=== PATIENT | male | born 1955 | race American Indian/Alaskan Native ===

== ENCOUNTER 2018-11-25 04:55 | Inpatient (IN) ==
[2018-11-19 17:02] LABS: Blood Urea Nitrogen 22 mg/dl (8-23)
[2018-11-19 17:09] LABS: Appearance,Urine CLEAR; Bilirubin,Urine NEG (NEG); Color,Urine YELLOW; Glucose,Urine (UA) 150 mg/dL (NEG); Leukocyte Esterase,Urine NEG /uL (NEG); Protein,Urine NEG (NEG); Specific Gravity,Urine 1.013 (1.000-1.035); Urine Blood NEG mg/dL (<0.03); Urobilinogen,Urine NEG (NEG)
[2018-11-19 17:10] LABS: Basophils # (Auto) 0.1 K/mcL (0.0-0.3); Basophils % (Auto) 0.7 % (0.0-2.0); Eosinophils # (Auto) 0.2 K/mcL (0.0-0.7); Eosinophils % (Auto) 2.6 % (0.0-7.0); Granulocytes % (Auto) 50.9 % (38.0-78.0); Lymphocytes # (Auto) 3.1 K/mcL (1.5-4.8); Lymphocytes % (Auto) 36.5 % (15.5-49.0); Mean Cell Volume 89.4 fL (80.0-100.0); Mean Corpuscular HGB Conc 32.8 g/dL (31.0-36.0); Monocytes # (Auto) 0.8 K/mcL (0.1-0.9); Monocytes % (Auto) 9.3 % (1.0-12.0); Platelet Count 251 K/mcL (140-440); RBC 4.01 M/mcL (4.50-5.90); Red Cell Distribution Width 13.6 % (11.5-14.5)
[2018-11-25] MEDS ORDERED: CELECOXIB 200 MG CAPSULE PO SCH (06:00)
[2018-11-25] MEDS ORDERED: ACETAMINOPHEN 500 MG TABLET PO SCH (06:00)
[2018-11-25] MEDS ORDERED: 0.9 % SODIUM CHLORIDE 9 ML, KETOROLAC 30 MG, ROPIVACAINE HCL/PF 49.5 ML, EPINEPHrine 0.... IJ SCH (06:00)
[2018-11-25] MEDS ORDERED: PREGABALIN 75 MG CAPSULE PO SCH (06:00)
[2018-11-25] MEDS ORDERED: ceFAZolin 2 GM in DEXTROSE 5% IN WATER 50 ML IV SCH (06:00)
[2018-11-25] MEDS ORDERED: oxyCODONE 10 MG TAB.ER.12H PO SCH (06:00)
[2018-11-25] MEDS ORDERED: VASOPRESSIN 20 UNIT/ML VIAL IV PRN (07:28)
[2018-11-25] MEDS ORDERED: ROPIVACAINE HCL/PF 20 ML VIAL IJ ONE (07:45)
[2018-11-25] MEDS ORDERED: LIDOCAINE HCL/PF 100 MG/5 ML SYRINGE IV ONE (07:45)
[2018-11-25] MEDS ORDERED: TRANEXAMIC ACID 1,000 MG/10 ML VIAL IV ONE (07:45)
[2018-11-25] MEDS ORDERED: PROPOFOL 200 MG/20 ML VIAL IV ONE (07:45)
[2018-11-25] MEDS ORDERED: VASOPRESSIN 20 UNIT/ML VIAL IV ONE (07:45)
[2018-11-25] MEDS ORDERED: ONDANSETRON 4 MG/2 ML VIAL IV ONE (07:45)
[2018-11-25] MEDS ORDERED: PHENYLEPHRINE 10 MG/ML VIAL IV ONE (07:45)
[2018-11-25] MEDS ORDERED: DEXAMETHASONE 4 MG/ML VIAL IV ONE (07:45)
[2018-11-25] MEDS ORDERED: ePHEDrine 50 MG/ML AMPUL IV ONE (07:45)
[2018-11-25] MEDS ORDERED: MIDAZOLAM 5 MG/5 ML VIAL IV ONE (07:45)
[2018-11-25] MEDS ORDERED: GENTAMICIN SULFATE 800 MG/20 ML VIAL IR ONE (08:04)
[2018-11-25] MEDS ORDERED: FLEETS ADULT ENEMA PR PRN (09:11)
[2018-11-25] MEDS ORDERED: POLYETHYLENE GLYCOL 3350 17 GM PACKET PO PRN (09:11)
[2018-11-25] MEDS ORDERED: ONDANSETRON 4 MG/2 ML VIAL IV PRN ×2 (09:11→09:37)
[2018-11-25] MEDS ORDERED: TRANEXAMIC ACID 1,000 MG/10 ML VIAL IV SCH (09:11)
[2018-11-25] MEDS ORDERED: MAGNESIUM HYDROXIDE 30 ML ORAL.SUSP PO PRN (09:11)
[2018-11-25] MEDS ORDERED: ACETAMINOPHEN 325 MG TABLET PO PRN (09:11)
[2018-11-25] MEDS ORDERED: BISACODYL 10 MG SUPP.RECT PR PRN (09:11)
[2018-11-25] MEDS ORDERED: BENZOCAINE/MENTHOL 1 LOZENGE PO PRN (09:11)
--- NOTE | 2018-11-25 09:11 | Brief Operative Note ---
Date of procedure: 11/25/18 Pre-op diagnosis: Left knee djd severe Post-op diagnosis: same Procedure: Lefty total knee with dudley robot Grafts/Implants: Yes Anesthesia: AYAD Surgeon: Edu Jalloh Enforcement Officer: Marlo Cisse Estimated blood loss (cc): 20 Tourniquet Time (Minutes): 50 Specimens Removed/Pathology: none sent Condition: stable Disposition: PACU
[2018-11-25] MEDS ORDERED: [UNRECOGNIZED DRUG - OTHER] TD SCH (09:15)
[2018-11-25] MEDS ORDERED: INSULIN ASPART SUB-Q SCH (09:15)
[2018-11-25] MEDS ORDERED: MEPERIDINE 25 MG/ML SYRINGE IV PRN (09:37)
[2018-11-25] MEDS ORDERED: IPRATROPIUM/ALBUTEROL 3 ML AMPUL.NEB NEB PRN (09:37)
[2018-11-25] MEDS ORDERED: METHOCARBAMOL 1,000 MG/10 ML VIAL IV PRN (09:37)
--- NOTE | 2018-11-25 09:38 | Operative Note ---
DATE OF OPERATION: 11/25/2018 PREOPERATIVE DIAGNOSIS: Left knee degenerative arthritis. POSTOPERATIVE DIAGNOSIS: Left knee degenerative arthritis. PROCEDURE: Left total knee arthroplasty using Devin robot. SURGEON: Edu Jalloh MD INDUSTRIAL ENGINEERING PROFESSOR: Marlo Cisse PA-C. The reason for assistance was because of the difficulty of exposure and using the robot, requiring a second development assistant. BLOOD LOSS: 20 mL TOURNIQUET TIME: 50 minutes. IMPLANTS: Size 6 femur and size 6 tibial baseplate. COMPLICATIONS: None. DESCRIPTION OF PROCEDURE: The patient was brought to the operating room and put to sleep with general LMA anesthesia. The left knee was sterilely prepped and draped in the usual sterile field and been confirmed as the operative site. Once done, we then made a midline incision, a mid vastus approach performed. We placed pins above and below the knee, registered center of hip rotation. We made the bony cuts using the robot after we had pre-navigated the implants to align for his deformity which was 8 degrees of varus, 8 degrees of flexion contracture. Once done, we then did the bony cuts, placed the implants which were drilled into place. We removed the meniscus and bony spurs. Next, 9 and 10 mm polys were used. The 10 was the most appropriate for range of motion and tightness. We then prepared the patella measuring 24 mm, cut this to 14 mm in total thickness and placed a 36 mm patellar button. Once in place, the implants were cemented into place and we kept the knee at 45 degrees. We closed the capsule with #1 Stratafix x2 stitches, closed the skin with 2-0 Vicryl and adhesive closure. Tourniquet pressure was 250 pounds of pressure for 50 mmHg. There was no complication. Sterile bandage was applied. RBH:chavo Job ID: [id number] Doc ID: [id number] Edu Jalloh MD
[2018-11-25] MEDS ORDERED: LACTATED RINGERS 1,000 ML IV SCH (09:45)
--- NOTE | 2018-11-25 10:18 | XRay Report ---
HISTORY: Postop left knee arthroplasty FINDINGS: There is a well-positioned left total knee prosthesis. There is no fracture in the femur, patella or tibia. On the lateral view there is a thin obliquely oriented radiolucent line seen along the posterior border of the head of the fibula. This is not seen on the PA view and it was not seen preoperatively on 05/20/18. Although this could be a fracture of the fibula, I suspect it is an artifact created by overlying soft tissue gas. IMPRESSION: Nondisplaced fracture versus artifact created by overlying gas in the head of the fibula. Follow-up is recommended. Interpreted and Authenticated by: Lito Beatty 11/25/18
[2018-11-25] MEDS: 0.45 % SODIUM CHLORIDE 1,000 ML IV SCH ×2 (10:40→20:57)
[2018-11-25] MEDS: oxyCODONE/APAP 5/325MG TABLET PO PRN ×4 (10:41→23:47)
[2018-11-25] MEDS: KETOROLAC 15 MG/ML VIAL IV SCH ×3 (11:42→23:37)
[2018-11-25] MEDS ORDERED: DEXTROSE 50% 50 ML VIAL IV PRN (13:38)
[2018-11-25] MEDS: 0.9 % SODIUM CHLORIDE 10 ML SYRINGE IV SCH ×2 (14:06→20:57)
[2018-11-25] MEDS: HYDROmorphone 2 MG/ML VIAL IV PRN (14:19)
[2018-11-25] MEDS: ceFAZolin 1 GM VIAL IV SCH ×2 (15:30→23:38)
[2018-11-25] MEDS: INSULIN LISPRO 1 UNIT/0.01 ML UNIT SQ SCH ×2 (17:17→20:58)
[2018-11-25] MEDS: INSULIN GLARGINE, HUMAN 1 UNIT/0.01 ML SQ SCH (20:57)
[2018-11-25] MEDS: ASPIRIN 325 MG ENTERIC COATED TABLET PO SCH (20:59)
[2018-11-25] MEDS: DOCUSATE SODIUM 100 MG CAPSULE PO SCH (20:59)
[2018-11-25] MEDS ORDERED: SIMVASTATIN 40 MG TABLET PO SCH (21:00)
[2018-11-25] MEDS ORDERED: SENNOSIDES 1 TABLET PO SCH (21:00)
[2018-11-25] MEDS ORDERED: DOCUSATE SODIUM 100 MG CAPSULE PO SCH (21:00)
[2018-11-25] MEDS ORDERED: TAMSULOSIN 0.4 MG CAPSULE PO SCH (21:00)
[2018-11-25] MEDS ORDERED: TEMAZEPAM 15 MG CAPSULE PO PRN (21:00)
[2018-11-26] MEDS: oxyCODONE/APAP 5/325MG TABLET PO PRN ×2 (04:04→08:17)
[2018-11-26] MEDS: 0.45 % SODIUM CHLORIDE 1,000 ML IV SCH (05:32)
[2018-11-26] MEDS: KETOROLAC 15 MG/ML VIAL IV SCH ×2 (05:49→11:09)
[2018-11-26] MEDS: 0.9 % SODIUM CHLORIDE 10 ML SYRINGE IV SCH (05:50)
[2018-11-26] MEDS: INSULIN LISPRO 1 UNIT/0.01 ML UNIT SQ SCH (06:59)
--- NOTE | 2018-11-26 07:25 | Orthopedic Progress Note ---
Subjective Patient information: Note initiated : 11/26/18 at 7:24 am Service Date, if different from initiated Date: [] Patient: Manfred Rose 63 y/o M admitted on 11/25/18 for Left Robotic Total Knee Arthroplasty. Chief Complaint: [Pt is stable this morning on post operative day 1 without any significant concerns or complaints. Patients vital signs have remained stable. Patients dressing is dry and is grossly intact from a neurovascular and motor standpoint. Patients 10 point ROS is otherwise negative. ] Objective Vital signs: Vital Signs Temp Pulse Resp BP BP Pulse Ox 11/26/18 03:44 98.5 F 91 H 16 135/68 95 11/25/18 23:36 98.1 F 93 H 12 130/67 95 11/25/18 19:21 98.3 F 87 12 117/58 93 11/25/18 18:16 92 11/25/18 16:23 97.8 F 84 18 125/66 92 11/25/18 14:12 95 11/25/18 12:16 76 130/62 95 11/25/18 12:01 75 126/65 95 11/25/18 11:46 70 133/88 92 11/25/18 11:31 69 129/63 92 11/25/18 11:17 73 123/56 95 11/25/18 11:01 71 125/57 94 11/25/18 10:46 73 120/56 94 11/25/18 10:33 72 109/54 96 11/25/18 10:18 74 102/56 96 11/25/18 10:10 97.1 F 72 16 103/46 98 11/25/18 09:55 97.3 F 70 14 102/41 97 11/25/18 09:40 97.0 F 65 16 113/46 95 11/25/18 09:35 64 15 110/42 93 11/25/18 09:30 63 13 106/49 94 11/25/18 09:25 97.0 F 60 18 107/47 96 Intake and Output 11/25/18 11/26/18 11/26/18 21:59 05:59 13:59 Intake Total 1200 Output Total 1150 1100 Balance 50 -1100 Intake: Oral 1200 Output: Void Amount 1150 1100 Other: Meal Lunch Percent of Meal Consumed 100% Feeding Ability Independent Urine Appearance Clear Clear Urine Color Straw Pale Urine Odor Normal Normal Weight 218 lb Intake & Output: Intake & Output 11/25/18 11/26/18 11/26/18 21:59 05:59 13:59 Intake Total 1200 Output Total 1150 1100 Balance 50 -1100 Weight 218 lb Intake: Oral 1200 Output: Void Amount 1150 1100 Other: Meal Lunch Percent of Meal Consumed 100% Feeding Ability Independent Urine Appearance Clear Clear Urine Color Straw Pale Urine Odor Normal Normal Incision: Yes healing Incision clean and dry: Yes Dressing: Yes clean Weight bearing status: full Neurological exam IM: Yes motor sensory intact, Yes neurovascular intact Extremities exam IM: Yes Foot pink and warm, Yes neurovascular intact - Labs CBC & BMP: 11/26/18 04:14 11/19/18 14:49 Labs: Orthopedic Labs 11/19/18 14:50 PT 13.7 INR 1.0 APTT 29 11/26/18 11/19/18 04:14 14:49 Hgb 11.8 L Hct 30.9 L 35.9 L Assessment and Plan (1) Hx of total knee arthroplasty The patient has been educated regarding dressing care, Physical Therapy recommendations, home exercises, restrictions, and follow up appointments. The patient has had all necessary DME prescribed. The patient has remained relatively stable during their hospital course. Status: Acute
--- NOTE | 2018-11-26 07:28 | Discharge Summary ---
Ortho Discharge - TKA - Patient Instructions Diet: Regular Diet Activity: activity as tolerated, weight bearing as tolerated Total Knee Protocol: For Total Knee: Start ROM CHAR with stationary bike or rocking chair. Work on gaining full extension of knee. Posterior dislocation precautions provided. Hip abductor strengthening and gait training instructions provided. Apply Cryocuff as instructed. Dressing Care: May shower in 2 days Additional Instructions: CPM for home use - Problem Maintenance (1) Hx of total knee arthroplasty Status: Acute - Follow Up Plan Follow Up Appointments: Marlo Cisse PA-C [Physician Master Pilot] - 12/10/18 1:10 pm Disposition: Home, Self-Care Prognosis: Good Rehab Potential: Good I certify that the patient requires SNF services: No Overall status at discharge: patient is progressing back to baseline - Orders For Discharge Prescriptions: Docusate Sodium [Colace] 100 mg PO BID #60 cap oxyCODONE/APAP [Percocet 5-325 mg] 1 - 2 tab PO Q4HP PRN #75 tab PRN Reason: Pain Level 3-6
[2018-11-26] MEDS: DOCUSATE SODIUM 100 MG CAPSULE PO SCH (08:16)
[2018-11-26] MEDS: ASPIRIN 325 MG ENTERIC COATED TABLET PO SCH (08:16)
[2018-11-26] MEDS: INSULIN GLARGINE, HUMAN 1 UNIT/0.01 ML SQ SCH (08:18)
[2018-11-26] MEDS ORDERED: amLODIPine 10 MG TABLET PO SCH (09:00)
[2018-11-26] MEDS ORDERED: CLOPIDOGREL 75 MG TABLET PO SCH (09:00)
[2018-11-26] MEDS ORDERED: BISOPROLOL 5 MG TABLET PO SCH (09:00)
[2018-11-26] MEDS ORDERED: traMADol 50 MG TABLET PO SCH (09:00)
[2018-11-26] MEDS ORDERED: FENOFIBRATE 43 MG CAPSULE PO SCH (09:00)
[2018-11-26] MEDS ORDERED: FERROUS SULFATE 325 MG TABLET PO SCH (09:00)
[2018-11-26] MEDS ORDERED: NON FORMULARY MEDICATION 1 DOSE MISCELL (Aspirin [Adult Low Dose Aspirin Ec] 81 MG) PO SCH (09:00)
[2018-11-26] MEDS ORDERED: CYANOCOBALAMIN (VITAMIN B-12) 500 MCG TABLET PO SCH (09:00)
[2018-11-26] MEDS ORDERED: LISINOPRIL 20 MG TABLET PO SCH (09:00)
[2018-11-26] MEDS ORDERED: SPIRONOLACTONE 25 MG TABLET PO SCH (09:00)
[2018-11-26] MEDS ORDERED: CHLORTHALIDONE 25 MG TABLET PO SCH (09:00)
[2018-11-26] MEDS: HYDROmorphone 2 MG/ML VIAL IV PRN (10:59)
[2018-12-02] MEDS ORDERED: ERGOCALCIFEROL (VITAMIN D2) 50,000 UNIT CAPSULE PO SCH (09:00)
== END 2018-11-26 11:30 | disposition home or self-care (01) | DRG 470 ==
LOC: MEDSUR 04:55
PROVIDERS: ADMIT Orthopaedic Surgery; ATTEND Orthopaedic Surgery